=== PATIENT | male | born 1990 | race Native Hawaiian/Other Pacific Islander ===

== ENCOUNTER 2021-09-06 23:47 | Emergency (ER) | payer MEDICAID, SELFPAY ==
[2021-09-07 00:25] VITALS: BP 130/80; BP 133/85; PULSE 100; PULSE 90; RESP 18; TEMP 37.2; O2SAT 100; BMI 28.3
[2021-09-07 00:39] LABS: Hematocrit 40.8 % (42.0-52.0); Hemoglobin 13.4 g/dl (14.0-18.0); Mean Corpuscular HGB Conc 32.8 g/dl (31.0-36.0); Mean Corpuscular Volume 85.2 fL (80.0-98.0); Mean Platelet Volume 9.4 fL (9.4-12.4); Platelet Count 480 X10*3/uL (160-400); Red Blood Count 4.79 X10*6/uL (4.60-5.80); Red Cell Distribution Width 13.3 % (11.0-16.0); White Blood Count 18.3 X10*3/uL (4.8-10.8)
[2021-09-07 00:56] LABS: COVID-19 Test Negative (Negative)
[2021-09-07 01:01] LABS: Alanine Aminotransferase 19 U/L (0-40); Albumin Level 4.5 g/dL (3.5-5.0); Alkaline Phosphatase 89 U/L (39-117); Anion Gap 15 (12-20); Aspartate Amino Transferase 18 U/L (5-37); Bilirubin Total 0.3 mg/dL (0.0-1.0); Blood Urea Nitrogen 16 mg/dL (9-16); Carbon Dioxide 24 mmol/L (22-29); Chloride 103 mmol/L (96-108); Creatinine Clr Calc Pharmacy 122.4; Estimated Glomerular Filt Rate > 60; Glucose Random 107 mg/dL (60-115); Sodium 138 mmol/L (135-145); Total Protein 8.4 g/dL (6.5-8.0)
== END 2021-09-07 02:04 | disposition left against medical advice (07) ==
PROVIDERS: Emergency Provider Emergency Medicine
DX: R11.2 Nausea with vomiting, unspecified (principal); Z20.822 Contact with and (suspected) exposure to COVID-19
CPT/HCPCS: 36415; 80053; 85027; 87635; 99282; 99283

== ENCOUNTER 2021-11-06 | Emergency (ER) | payer MEDICAID, SELFPAY ==
[2021-11-06 00:28] VITALS: BP 140/95; PULSE 109; RESP 18; TEMP 36.9; O2SAT 98; BMI 29.3
--- NOTE | 2021-11-06 01:00 | ED.GENADULT ---
HPI - General Adult General Chief complaint: General Medical Stated complaint: Sore throat Time Seen by Provider: 11/06/21 00:10 Source: patient Mode of arrival: ambulatory Limitations: no limitations History of Present Illness HPI narrative: 30-year-old male presents with sore throat, congestion, and intermittent chills. Patient has had strep in the past and feels similar. Onset (ago): day(s) (3) Severity: moderate Severity scale (1-10): 6 Quality: burning and aching Pain Consistency: constant Relieving factors: none Exacerbating factors: eating Associated symptoms: denies other symptoms Treatments prior to arrival: NSAID Related Data Previous Rx's Medication Instructions Recorded amoxicillin 875 mg-potassium 1 tab PO Q12H 10 days #20 tabs 11/06/21 clavulanate 125 mg tablet Allergies Allergy/AdvReac Type Severity Reaction Status Date / Time acetaminophen [From TYLENOL] Allergy Unknown UNKNOWN Unverified 02/13/20 16:14 Review of Systems Review of Systems: Constitutional: No Fever, positive Chills ENT/Mouth: No Ear Pain, No Hoarseness, positive sore throat Eyes: No Eye Pain, No Swelling, No Redness, No Foreign Body Cardiovascular: No Chest Pain, No SOB Respiratory: No Cough, No Dyspnea Gastrointestinal: No Nausea, No Vomiting, No Diarrhea, No abdominal Pain Genitourinary: No Dysuria, No Hematuria Musculoskeletal: No joint pain, No Myalgias, No Joint Swelling Skin: No Skin lacerations, No rash Neuro: No Weakness, No Numbness, No Paresthesias, No Loss of Consciousness, No Dizziness, No Headache Psych: No Anxiety/Panic, No Depression Heme/Lymph: no easy bruising, no Lymphadenopathy Endocrine: No Polyuria, No Polydipsia Yes all other systems are reviewed and are negative [facility] Past Medical History Attestation statement: The following information was validated with the patient. Source: old records reviewed Social History Social History Advance Directives: No Physical Exam ED Vital Signs: Vital Signs - 24 hr 11/06/21 00:28 Temperature 98.4 F Pulse Rate 109 H Respiratory Rate 18 Blood Pressure 140/95 H Pulse Oximetry 98 Oxygen Delivery Method Room Air BMI result Body Mass Index 29.3 Appearance: Alert. Oriented X3. No acute distress. Eyes: Pupils equal, round and reactive to light. Sclera nonicteric. ENT: Pharynx erythematous with bilateral tonsillar swelling with exudates. Halitosis. Neck: Normal inspection. Neck supple. Posterior cervical lymphadenopathy. No mastoid tenderness noted. CVS: Normal heart rate and rhythm. Pulses normal. Respiratory: No respiratory distress. Breath sounds normal. Abdomen: Soft and nontender. No hepatosplenomegaly. Skin: Skin warm and dry. Normal skin color. Normal skin turgor. Extremities: No lower extremity edema. Gait well-balanced well coordinated. Neuro: No motor deficit. No sensory deficit. Cranial nerves 2-12 intact. Course Course Course Narrative: 30-year-old male presents with sore throat. Had strep positive few months ago. Physical exam is consistent with strep. Has bilateral tonsillar swelling with exudates, posterior cervical lymphadenopathy, no cough, with halitosis. Centor scale 4. Tympanic membranes intact. No hepatosplenomegaly or abdominal tenderness to palpation. Will treat with Augmentin. Patient verbalized understanding of and agrees to plan of care to discharge home. Verbalized understanding of signs and symptoms indicating need for emergent intervention Medical Decision Making Differential Diagnosis Differential Diagnosis: Strep pharyngitis, otitis media, influenza, viral syndrome Medical Records Medical records reviewed: Yes I reviewed the patient's medical records. Lab Data Lab results reviewed: Yes I reviewed the patient's lab results. Discharge Plan Discharge Clinical Impression: Acute streptococcal pharyngitis Patient Disposition: Home, Self-Care Instructions: Pharyngitis (ED), Strep Throat (ED) Additional Instructions: You were evaluated for sore throat. Physical exam indicates strep pharyngitis. Your test results are pending. Please take Augmentin 875 mg twice a day for 10 days. Please change your toothbrush once antibiotics are complete. Alternate Tylenol 650 mg every 6 hours and Motrin 600 mg every 6 hours as needed for pain management. Write down what time he take these medications to prevent accidental overdose. Thank you for choosing this emergency department for evaluation. Please follow-up with primary care physician as needed. Return to the emergency department for any new, concerning, or worsening symptoms. Prescriptions: New amoxicillin-pot clavulanate 875-125 mg tablet 1 tab PO Q12H 10 Days Qty: 20 0RF Stand Alone Forms: Work/School Release Interventions: LWBS Worksheet Last Done: 11/06/21 01:02
[2021-11-06] MEDS: Amoxicillin/Potassium Clav 875 MG TABLET PO (01:41)
[2021-11-06] MEDS: Lidocaine HCl Viscous 2 % 15 ML SOLUTION MUCOUS MEM (01:42)
[2021-11-06 02:08] LABS: Strep A Nucleic Acid Negative (Negative)
[2021-11-06 02:18] LABS: COVID-19 Test Negative (Negative); IDNOW Serial# 16C4AD1C; Influenza A Negative (Negative); Influenza B2 Negative (Negative)
== END 2021-11-06 01:45 | disposition home or self-care (01) ==
PROVIDERS: Emergency Medicine; Emergency Provider Emergency Medicine Emergency Medical Services
DX: J02.0 Streptococcal pharyngitis (principal); Z20.822 Contact with and (suspected) exposure to COVID-19
CPT/HCPCS: 36415; 87502; 87635; 87651; 99282; 99283

== ENCOUNTER 2022-08-22 03:38 | Emergency (ER) | payer MEDICAID, SELFPAY ==
[2022-08-22 03:49] VITALS: BP 151/76; PULSE 96; RESP 16; TEMP 36.7; O2SAT 98; BMI 26.6
--- NOTE | 2022-08-22 04:06 | PC.NURSE ---
Pt presents to the ED today for upper right jaw/tooth pain, ? abscess. Reports having puss draining from the affected area. Reports having increased fatigue, intermittent shortness of breath, headache, and occasional heart palpitations. To control pain, pt reports applying iburprofen to the affected area. Pain is rated 0/10 at present, but when pain is at it's worst is rated 10/10. No other associated symptoms or complaints reported. Last routine exam with dentist is unknown, per pt it has been years.
--- NOTE | 2022-08-22 04:13 | ED_ITS ---
HPI - Dental/Oral General Chief complaint: Dental/Oral Stated complaint: cyst in gums Time Seen by Provider: 08/22/22 04:03 History of Present Illness HPI Narrative: Patient is a 31-year-old male with a previous history of recreational drug use namely heroin. Patient claims he stopped in the last year. Is trying to change his life. Been complaining of pain to the teeth in his upper and lower jaw. It has been ongoing for over year. Getting worse. Patient came in tonight for help. There is no gross change in voice. There is no difficulty in swallowing. Patient from home. MD Complaint: tooth pain Location: Tooth # Teeth map: 1. Entire upper trough in various stages of dental decay there is no gross abscess palpable. 2. Lower jaw has infection on the right side more prominently. CK down to the root. No abscess palpable. Related Data Previous Rx's Medication Instructions Recorded amoxicillin 875 mg-potassium 1 tab PO Q12H 10 days #20 tabs 11/06/21 clavulanate 125 mg tablet ibuprofen 400 mg tablet 400 mg PO Q6H PRN pain #20 tabs 08/22/22 penicillin V potassium 500 mg 500 mg PO TID 7 days #21 tabs 08/22/22 tablet Allergies Allergy/AdvReac Type Severity Reaction Status Date / Time acetaminophen [From TYLENOL] Allergy Unknown UNKNOWN Unverified 08/22/22 03:55 Review of Systems Review of Systems: No fever no chills no diaphoresis Yes all other systems are reviewed and are negative [facility] Past Medical History Attestation statement: The following information was validated with the patient. Social History Social History Alcohol intake: unknown Physical Exam Vital Signs: Vital Signs: Last Vital Signs Temp 98.0 F 08/22/22 03:49 Pulse 96 08/22/22 03:49 Resp 16 08/22/22 03:49 BP 151/76 H 08/22/22 03:49 Pulse Ox 98 08/22/22 03:49 O2 Del Method Room Air 08/22/22 03:49 BMI result Body Mass Index 26.6 Appearance: Alert. Oriented X3. No acute distress. Eyes: Pupils equal, round and reactive to light. ENT: Pharynx normal. Examination of the upper jaw basically all the teeth are decayed. Most of them almost down to the gums. There is no gross abscess palpable. In the lower jaw on the right side there is numerous tooth that was decayed down to the the gum line as well. Neck: Normal inspection. Neck supple. No lymph nodes noted. No crepitus CVS: Normal heart rate and rhythm. Pulses normal. Normal S1 and S2 Respiratory: No respiratory distress. Breath sounds normal. No Wheezing. No rales Abdomen: Soft and nontender. No rigidity. No distention. good BS x4 Skin: Skin warm and dry. Normal skin color. Normal skin turgor. Extremities: No lower extremity edema. Neurovascular intact to all extremities. No Lacerations. No Rash Neuro: Oriented X 3. No motor deficit. No sensory deficit. Moving all extermities. No slurred speech Medical Decision Making Differential Diagnosis Patient has significant dental cavities, no gross abscess palpable. Will start patient on penicillin. Refer patient to [facility] for dental clinic. Patient is in stable condition. Will give Motrin for pain as patient had a previous history of narcotic use. In stable condition. Prescription Management I considered prescription management with: Pain Medication and Antibiotic Chronic Conditions Previous polysubstance abuse Social Determinants Patient?s care significantly limited by Social Determinants of Health including: Alcoholism and drug addiction in family Discharge Plan Discharge Clinical Impression: Dental caries Patient Disposition: Home, Self-Care Instructions: Toothache (ED) Prescriptions: New penicillin V potassium 500 mg tablet 500 mg PO TID 7 Days Qty: 21 0RF ibuprofen 400 mg tablet 400 mg PO Q6H PRN (Reason: pain) Qty: 20 0RF No Action amoxicillin-pot clavulanate 875-125 mg tablet 1 tab PO Q12H 10 Days Qty: 20 0RF Referrals: [facility] [Provider Group]
== END 2022-08-22 04:39 | disposition home or self-care (01) ==
PROVIDERS: Emergency Provider Emergency Medicine Emergency Medical Services
DX: K02.9 Dental caries, unspecified (principal)
CPT/HCPCS: 99283

== ENCOUNTER 2023-02-06 23:01 | Emergency (ER) | payer MEDICAID, SELFPAY | END 2023-02-06 23:55 | disposition left against medical advice (07) | PROVIDERS: Emergency Provider Emergency Medicine | DX: K08.89 Other specified disorders of teeth and supporting structures (principal) ==

== ENCOUNTER 2023-10-10 02:22 | Emergency (ER) | payer MEDICAID, SELFPAY ==
[2023-10-10 02:27] VITALS: BP 185/93; PULSE 70; RESP 18; TEMP 36.1; O2SAT 96; BMI 25.8
--- NOTE | 2023-10-10 04:22 | ED.DENTAL ---
HPI - Dental/Oral General Chief complaint: Ear Problems Stated complaint: cyst in nose, dizziness Time Seen by Provider: 10/10/23 04:04 Source: patient Mode of arrival: ambulatory Limitations: no limitations History of Present Illness HPI Narrative: 32 yo male no sig PMH notes earlier today had a lot of facial pressure thought he had a lesion in his nose went to get it with tweezers but couldn't. He does not have a nasal septum due to prior cocaine abuse. He then developed worsening pain in face, thought he had L sided swelling. Thought there was a lump near L ear but all of his symptoms are now gone. He has sinus congestion. He does have prior L sided jaw injury from boxing has pain opening jaw at times and clicking in jaw Onset (ago): day(s) (1) Duration: now resolved Severity: moderate Relieving factors: nothing Exacerbating factors: chewing and other (touching face) Context: trauma (mechanism) Associated symptoms: ear pain and other (sinus congestion) Treatment prior to arrival: none Related Data Previous Rx's ?Medication ?Instructions ?Recorded amoxicillin 875 mg-potassium 1 tab PO Q12H 10 days #20 tabs 11/06/21 clavulanate 125 mg tablet ibuprofen 400 mg tablet 400 mg PO Q6H PRN pain #20 tabs 08/22/22 penicillin V potassium 500 mg 500 mg PO TID 7 days #21 tabs 08/22/22 tablet amoxicillin 875 mg-potassium 1 tab PO BID #13 tabs 10/10/23 clavulanate 125 mg tablet cetirizine 10 mg tablet 10 mg PO DAILY PRN allergy 10/10/23 symptoms #30 tabs cyclobenzaprine 10 mg tablet 10 mg PO TID PRN muscle spasm #20 10/10/23 tabs Allergies Allergy/AdvReac Type Severity Reaction Status Date / Time acetaminophen [From TYLENOL] Allergy Unknown Hives Verified 10/10/23 02:29 Review of Systems Review of Systems: Constitutional : No Fever, No Chills, No Fatigue ENT/Mouth : No sore throat, No Rhinorrhea, pos ear pain, pos sinus congestion, pos jaw pain Eyes: No Eye Pain, No Swelling, No Redness Cardiovascular : No Chest Pain, No SOB, No Dyspnea on Exertion Respiratory : No Cough, No Sputum Gastrointestinal : No Nausea, No Vomiting, No Diarrhea, No abdominal Pain Genitourinary : No Dysuria, No Urinary Frequency, No Hematuria, Musculoskeletal : No joint pain, No Myalgias, No Joint Swelling Skin : No Skin Lesions, No rash Neuro : No Weakness, No Numbness, No Dizziness, positive Headache Psych : No Anxiety/Panic, No Depression All other systems reviewed and are negative [facility] Past Medical History Attestation statement: The following information was validated with the patient. Medical History (Updated 10/10/23 @ 04:30 by Kizzy Ibarra DO) No pertinent past medical history Social History Social History (Updated 10/10/23 @ 04:30 by Kizzy Ibarra DO) Alcohol intake: unknown Patient Tobacco Use Status: Tobacco use Unknown Physical Exam Vital Signs: Vital Signs: Last Vital Signs Temp 97.0 F 10/10/23 02:27 Pulse 70 10/10/23 02:27 Resp 18 10/10/23 02:27 BP 185/93 H 10/10/23 02:27 Pulse Ox 96 10/10/23 02:27 O2 Del Method Room Air 10/10/23 02:27 BMI result Body Mass Index 25.8 Appearance: Alert. Oriented X3. No acute distress. Eyes: Pupils equal, round and reactive to light. ENT: Pharynx normal. no facial swelling, septum is absent, no mass seen no blood, normal EOM, normal TMs, no lymphadenopathy, has TMJ pain on exam Neck: Normal inspection. Neck supple. CVS: Normal heart rate and rhythm. Pulses normal. Respiratory: No respiratory distress. Breath sounds normal. Abdomen: Soft and non-tender. Skin: Skin warm and dry. Normal skin color. Extremities: No lower extremity edema. No calf ttp Neuro: Oriented X 3. No motor deficit. No sensory deficit. Medical Decision Making Medical Decision Making [facility] Narrative: 32 yo male with vague symptoms of facial pain, sinus congestion reportedly tried to remove a cyst from the nose though I see nothing on exam - he has normal ENT exam no meningeal signs, headache resolved neuro intact at this time well appearing will start on medications for suspect TMJ syndrome along with allergy medications and sinusitis treatment. Precautions to return. Differential Diagnosis Differential Diagnoses: The differential diagnosis associated with the presentation includes TMJ syndrome, sinusitis Independent Historian Clinical information obtained from an independent historian. History obtained from or confirmed by: Parent Prescription Management I considered prescription management with: Antibiotic and Other Discharge Plan Discharge Clinical Impression: Left-sided temporomandibular joint pain-dysfunction syndrome Sinusitis Qualifiers: Sinusitis location: unspecified location Chronicity: acute Recurrence: non-recurrent Qualified Code(s): J01.90 - Acute sinusitis, unspecified Patient Disposition: Home, Self-Care Instructions: Sinusitis (ED), Temporomandibular Disorder (ED) Additional Instructions: talk to your dentist or doctor if jaw worsens about further management and care return for worsening pain, fevers, confusion, headache or any other concerns. On amoxicillin-clavulanate, softer bowel movements are to be expected. Call your provider if you move your bowels more than 4 times a day, your bowel movements are almost all liquid, or you get a rash.? Prescriptions: New cyclobenzaprine 10 mg tablet 10 mg PO TID PRN (Reason: muscle spasm) Qty: 20 0RF amoxicillin-pot clavulanate 875-125 mg tablet 1 tab PO BID Qty: 13 0RF cetirizine 10 mg tablet 10 mg PO DAILY PRN (Reason: allergy symptoms) Qty: 30 1RF No Action amoxicillin-pot clavulanate 875-125 mg tablet 1 tab PO Q12H 10 Days Qty: 20 0RF penicillin V potassium 500 mg tablet 500 mg PO TID 7 Days Qty: 21 0RF ibuprofen 400 mg tablet 400 mg PO Q6H PRN (Reason: pain) Qty: 20 0RF Print Language: Bhutanese
[2023-10-10] MEDS: Amoxicillin/Potassium Clav 875 MG TABLET PO (04:35)
[2023-10-10] MEDS: Cyclobenzaprine HCl 10 MG TABLET PO (04:35)
[2023-10-10 04:51] VITALS: BP 117/66; PULSE 59; RESP 17; TEMP 36.5; O2SAT 98
[2023-10-10 04:52] VITALS: BP 117/66; PULSE 59; RESP 17; TEMP 36.5; O2SAT 98
== END 2023-10-10 04:53 | disposition home or self-care (01) ==
PROVIDERS: Emergency Provider Emergency Medicine
DX: J01.90 Acute sinusitis, unspecified (principal)
CPT/HCPCS: 99283; 99284

== ENCOUNTER 2023-12-11 22:23 | Emergency (ER) | payer MEDICAID, SELFPAY ==
[2023-12-11 22:43] VITALS: BP 99/43; PULSE 60; RESP 19; TEMP 36.8; O2SAT 97; BMI 27.0
[2023-12-11 23:41] LABS: Influenza A PCR NEGATIVE (Negative); Influenza B PCR NEGATIVE (Negative); Resp Syncy Virus RNA Qual PCR NEGATIVE (Negative); SARS COV2 PCR INHOUSE NEGATIVE (Negative)
[2023-12-12] VITALS: BP 99/58; PULSE 52; RESP 16; TEMP 37.1; O2SAT 98
--- NOTE | 2023-12-12 00:39 | ED_ITS ---
HPI - URI/Sore Throat General Chief Complaint: Upper Respiratory Symptoms Stated Complaint: congestion, difficulty breathing Time Seen by Provider: 12/12/23 00:28 Source: patient Mode of arrival: ambulatory Limitations: no limitations History of Present Illness HPI Narrative: Patient is a 33-year-old male who presents to the emergency department for evaluation of postnasal drip, productive phlegm. Onset a few months ago, states he received a prescription for antibiotics and took an allergy pill for approximately 1 month. His symptoms did improve but they have since returned again. He admits to intranasal cocaine and heroin usage, he however did declines any interest in detox or assistance. He denies any fevers, chills, ear pain, sore chest pain or shortness of breath Denies fevers, chills, headache, dizziness, neck pain, neck stiffness, chest pain, shortness of breath, difficulty breathing, cough, sore throat, nausea, vomiting, abdominal pain, numbness or tingling of the extremities, genitourinary symptoms. Related Data Previous Rx's ?Medication ?Instructions ?Recorded amoxicillin 875 mg-potassium 1 tab PO Q12H 10 days #20 tabs 11/06/21 clavulanate 125 mg tablet ibuprofen 400 mg tablet 400 mg PO Q6H PRN pain #20 tabs 08/22/22 penicillin V potassium 500 mg 500 mg PO TID 7 days #21 tabs 08/22/22 tablet amoxicillin 875 mg-potassium 1 tab PO BID #13 tabs 10/10/23 clavulanate 125 mg tablet cetirizine 10 mg tablet 10 mg PO DAILY PRN allergy 10/10/23 symptoms #30 tabs cyclobenzaprine 10 mg tablet 10 mg PO TID PRN muscle spasm #20 10/10/23 tabs amoxicillin 875 mg-potassium 1 tab PO BID #13 tabs 12/12/23 clavulanate 125 mg tablet cetirizine 10 mg tablet 10 mg PO DAILY #30 tabs 12/12/23 Allergies Allergy/AdvReac Type Severity Reaction Status Date / Time acetaminophen [From TYLENOL] Allergy Unknown Hives Verified 12/11/23 22:48 Review of Systems Review of Systems: Yes all other systems are reviewed and are negative [facility] Past Medical History Attestation statement: The following information was validated with the patient. Source: old records reviewed Medical History (Updated 12/12/23 @ 00:44 by Catherine Lizama CNP) No pertinent past medical history Social History Social History (Updated 10/10/23 @ 04:30 by Kizzy Ibarra DO) Alcohol intake: unknown Patient Tobacco Use Status: Tobacco use Unknown Smoked in Last 30 Days: No Use of substances other than those prescribed or required for medical reasons: No Advance Directives: No Advance Directives Information Provided: Yes Do you have a plan to hurt others: No Plan Physical Exam Vital Signs: Vital Signs: Last Vital Signs Temp 98.7 F 12/12/23 01:02 Pulse 52 12/12/23 01:02 Resp 16 12/12/23 01:02 BP 99/58 L 12/12/23 01:02 Pulse Ox 98 12/12/23 01:02 O2 Del Method Room Air 12/12/23 01:02 BMI result Body Mass Index 27.0 Appearance: Alert.?Oriented to person, place and time. No acute distress.?Normal affect. Eyes: Pupils equal, round and reactive to light.? ENT: TM normal bilaterally. Pharynx normal.??Septum is absent. No visible masses or epistaxis. Neck: Normal inspection.? Neck supple.??No cervical adenopathy CVS: Heart sounds normal. Normal heart rate and rhythm.? Pulses normal.?? Respiratory: No respiratory distress.? Lung sounds clear to auscultation bilaterally?? Abdomen: Soft and non-tender. Normoactive bowel sounds. Skin: Skin warm and dry.? Normal skin color.? ? Extremities: No lower extremity edema.? Neuro: Moves all extremities spontaneously. Sensation intact bilaterally. No motor deficits. Ambulates with normal steady gait. Medications Administered Discontinued Medications Generic Name Dose Route Start Last Admin Trade Name Freq PRN Reason Stop Dose Admin Amoxicillin/Clavulanate Potassium 875 mg 12/12/23 00:44 12/12/23 00:59 Amoxicillin/Potassium Clav 875 Mg Tablet PO 12/12/23 00:45 875 mg ONCE ONE Administration Medical Decision Making Medical Decision Making [facility] Narrative: Patient is a 33-year-old male presents emergency department for evaluation of productive phlegm, expressed concern for sinus congestion. Examination is overall benign, aside from absence of nasal septum. No nuchal rigidity, Well- appearing, nontoxic, afebrile, no tachycardia or tachypnea/hypoxia. Speaking clear full sentences, ambulatory with steady gait. Discussed conservative treatment including rest, hydration, Tylenol/ibuprofen as needed for fever and body aches, saline nasal spray, humidifier. Sent prescription for Augmentin and cetirizine to pharmacy, advised to refrain from intranasal recreational drug usage as this is likely worsening his sinusitis. Advised to follow-up with primary care provider as needed, discussed reasons to return back to the emergency department. All questions were answered. Patient discharged home in stable condition. Differential Diagnosis Differential Diagnoses: The differential diagnosis associated with the presentation includes ( See narrative above) Admission/Observation Consideration of admission/observation: Escalation of care including admission/observation considered ( see narrative above) Lab Data MDM Lab Attestation statement: I reviewed the patient's lab results. ( see narrative above) Labs: Lab Results 12/11/23 Range/Units 23:00 Influenza Type A (PCR) NEGATIVE (Negative) Influenza Type B (PCR) NEGATIVE (Negative) RSV RNA Qual (PCR) NEGATIVE (Negative) SARS-CoV-2 RNA (RT-PCR) NEGATIVE (Negative) External Record Review External record reviewed: Outpatient record Prescription Management I considered prescription management with: Pain Medication ( acetaminophen/ibuprofen) and Antibiotic Discharge Plan Discharge Clinical Impression: Sinusitis Patient Disposition: Home, Self-Care Instructions: Sinusitis (ED) Prescriptions: New amoxicillin-pot clavulanate 875-125 mg tablet 1 tab PO BID Qty: 13 0RF cetirizine 10 mg tablet 10 mg PO DAILY Qty: 30 0RF No Action amoxicillin-pot clavulanate 875-125 mg tablet 1 tab PO Q12H 10 Days Qty: 20 0RF penicillin V potassium 500 mg tablet 500 mg PO TID 7 Days Qty: 21 0RF ibuprofen 400 mg tablet 400 mg PO Q6H PRN (Reason: pain) Qty: 20 0RF cyclobenzaprine 10 mg tablet 10 mg PO TID PRN (Reason: muscle spasm) Qty: 20 0RF amoxicillin-pot clavulanate 875-125 mg tablet 1 tab PO BID Qty: 13 0RF cetirizine 10 mg tablet 10 mg PO DAILY PRN (Reason: allergy symptoms) Qty: 30 1RF Referrals: [facility] [Primary Care Provider] - Interventions: ED Discharge Assessment Last Done: 12/12/23 01:02 Discharge Date/Time: 12/12/23 01:03 Print Language: Greek
[2023-12-12] MEDS: Amoxicillin/Potassium Clav 875 MG TABLET PO (00:59)
[2023-12-12 01:02] VITALS: BP 99/58; PULSE 52; RESP 16; TEMP 37.1; O2SAT 98
== END 2023-12-12 01:03 | disposition home or self-care (01) ==
PROVIDERS: Emergency Provider Emergency Medicine
DX: J32.9 Chronic sinusitis, unspecified (principal); J02.9 Acute pharyngitis, unspecified; R06.02 Shortness of breath; Z03.818 Encounter for observation for suspected exposure to other biological agents ruled out
CPT/HCPCS: 0241U; 99283; 99284

== ENCOUNTER 2024-02-16 08:28 | Emergency (ER) | payer MEDICAID, SELFPAY ==
--- NOTE | ~2024-02-16 | XR_ITS ---
EXAMINATION: XR CHEST CLINICAL INFORMATION: Cough, dyspnea COMPARISON: Chest radiograph 10/10/2007 TECHNIQUE: 2 views of the chest were obtained. FINDINGS: The lungs are adequately expanded. Subtle opacity in the right upper lobe projecting over the anterior first rib ,not definitely visualized on prior exam. The left lung is clear. No pleural effusions or pneumothorax. The cardiomediastinal silhouette is within normal limits. No acute osseous abnormality. XR/XR chest 2V IMPRESSION: Subtle opacity in the right upper lobe not definitely visualized on prior exam. An infiltrate is not excluded. Electronically signed by: Jordin Rodriguez MD 02/16/2024 10:34 AM EDT
[2024-02-16 08:57] VITALS: BP 124/94; PULSE 57; RESP 18; TEMP 36.9; O2SAT 97; BMI 29.2
--- NOTE | 2024-02-16 09:34 | ED_ITS ---
HPI - General Adult General Chief complaint: Upper Respiratory Symptoms Stated complaint: Headache/Diff breathing Time Seen by Provider: 02/16/24 09:33 Source: patient Mode of arrival: ambulatory Limitations: no limitations History of Present Illness ED Provider: Latisha House PA-C HPI narrative: Patient is a 33 year old assigned male at with no reported medical history presenting to the emergency department today with a cough. Patient states that he has been dealing with excessive mucous and a cough for weeks and it has not improved despite taking OTC medication. Patient denies any dizziness, lightheadedness, abdominal pain, nausea, vomiting, fever, chills, blurry vision, double vision, loss of vision, chest pain, difficulty breathing, shortness of breath, back pain, night sweats, pain with urination, increased urinary frequency, increased urinary urgency, blood in his urine or stool, syncope or a near syncopal episode, recent trauma or falls, bowel incontinence, bladder incontinence, or any other complaints at this time. Onset (ago): week(s) Relieving factors: none Exacerbating factors: none Associated symptoms: cough Related Data Previous Rx's ?Medication ?Instructions ?Recorded amoxicillin 875 mg-potassium 1 tab PO Q12H 10 days #20 tabs 11/06/21 clavulanate 125 mg tablet ibuprofen 400 mg tablet 400 mg PO Q6H PRN pain #20 tabs 08/22/22 penicillin V potassium 500 mg 500 mg PO TID 7 days #21 tabs 08/22/22 tablet amoxicillin 875 mg-potassium 1 tab PO BID #13 tabs 10/10/23 clavulanate 125 mg tablet cetirizine 10 mg tablet 10 mg PO DAILY PRN allergy 10/10/23 symptoms #30 tabs cyclobenzaprine 10 mg tablet 10 mg PO TID PRN muscle spasm #20 10/10/23 tabs amoxicillin 875 mg-potassium 1 tab PO BID #13 tabs 12/12/23 clavulanate 125 mg tablet cetirizine 10 mg tablet 10 mg PO DAILY #30 tabs 12/12/23 amoxicillin 875 mg tablet 875 mg PO BID 7 days #14 tabs 02/16/24 doxycycline hyclate 100 mg tablet 100 mg PO BID 7 days #14 tabs 02/16/24 Allergies Allergy/AdvReac Type Severity Reaction Status Date / Time acetaminophen [From TYLENOL] Allergy Unknown Hives Verified 02/16/24 08:59 Review of Systems Constitutional: Constitutional: Reports no additional constitutional complaints, Denies chills, Denies fever(s) and Denies night sweats Eyes: Eyes: Reports no additional eye complaints, Denies blurry vision, Denies change in vision, Denies diplopia, Denies eye discharge, Denies loss of vision and Denies eye pain ENT: Denies dizziness Cardiovascular: Cardiovascular: Reports no additional cardiovascular complaints, Denies chest pain, Denies lightheadedness, Denies Loss of Consciousness and Denies dyspnea Respiratory: Respiratory: Reports no additional respiratory complaints, Reports cough and Denies dyspnea Gastrointestinal: Gastrointestinal: Reports no additional gastrointestinal c omplaints, Denies abdominal pain, Denies melena, Denies hematochezia, Denies change in bowel habits and Denies change in stool character Genitourinary: Genitourinary: Reports no additional male genitourinary complaints, Denies hematuria, Denies oliguria, Denies difficulty urinating, Denies dysuria, Denies urinary frequency, Denies urinary hesitancy, Denies urinary incontinence and Denies urinary urgency Musculoskeletal: Musculoskeletal: Reports no additional musculoskeletal complaints, Denies numbness and Denies tingling Neurologic: Denies dizziness, Denies loss of vision, Denies numbness and Denies tingling Psychiatric: Psychiatric: Reports no additional psychiatric complaints Endocrine: Endocrine: Reports no additional endocrine complaints Hematologic/Lymphatic: Hematologic/Lymphatic: Reports no additional hematologic/lymphatic complaints Allergic/Immunologic: Allergic/Immunologic: Reports no additional allergic/immunologic complaints [facility] Past Medical History Attestation statement: The following information was validated with the patient. Source: old records reviewed and nursing notes reviewed Medical History No pertinent past medical history Social History Social History Alcohol intake: unknown Patient Tobacco Use Status: Tobacco use Unknown Advance Directives: No Advance Directives Information Provided: Yes Physical Exam ED Vital Signs: Vital Signs - 24 hr 02/16/24 08:57 02/16/24 10:00 Temperature 98.5 F 98.3 F Pulse Rate 57 62 Respiratory Rate 18 19 Blood Pressure 124/94 H 155/93 H Pulse Oximetry 97 98 Oxygen Delivery Method Room Air Room Air BMI result Body Mass Index 29.2 Const General: cooperative, no acute distress, alert and awake Nutritional Appearance: well nourished Orientation/consciousness: patient oriented x3 Limitations: no limitations HENMT Head: Yes normal to inspection and Yes atraumatic Ears: hearing grossly normal bilaterally and external ears normal General nose exam: Normal external nose present, no nasal discharge noted and no epistaxis Face and sinus: Yes normal facial exam, No abrasion and No laceration Mouth: Normal oral and palatal mucosa present, no drooling and no muffled voice Eyes General: appearance normal, both eyes and all related structures Periorbital: periorbital findings normal Eyelids: Yes eyelids normal Conjunctivae: conjunctivae normal Pupils: Equal, round and reactive pupils present EOM: EOMs intact bilaterally Neck Neck: Yes normal visual inspection, Yes full ROM and Yes no lymphadenopathy Chest Chest palpation & inspection: normal inspection of the chest Resp Effort & Inspection: normal respiratory effort and able to speak in complete sentences GI Inspection: Yes normal to inspection Neuro General: patient oriented x3 and moves all extremities Cranial nerves: Yes Equal, round and reactive pupils present Cognition (Neuro): normal cognition Extrem General: Yes normal to inspection, Yes full ROM and Yes capillary refill normal Psych Appearance: grossly normal Mental Status: mental status grossly normal Affect: normal affect Attitude: cooperative Thought process: Normal thought process present Thought content: Normal thought content present Insight: Good insight present (Psych) Medical Decision Making Medical Decision Making MDM Narrative: Patient is a 33 year old assigned male at with no reported medical history presenting to the emergency department today with a cough. Patient's physical exam was unremarkable. Patient's chest x-ray showed possible PNA. Given the patient's clinical presentation and duration of symptoms, will treat. I explained my physical exam findings as well as all test results to the patient. I answered all questions asked by the patient. I stressed the importance of the patient taking his medication as directed (either prescribed or as the over the counter packaging recommends). I stressed the importance of the patient fo llowing up with his primary care provider. I stressed the importance of the patient returning to the emergency department immediately if his symptoms were to worsen or if he were to develop any dizziness, shortness of breath, difficulty breathing, chest pain, blurry vision, loss of vision, nausea, vomiting, abdominal pain, fever, chills, back pain, or any other complaints. Patient verbalized agreement and understanding with this treatment plan and discharge. Differential Diagnosis Differential Diagnoses: The differential diagnosis associated with the presentation includes PNA Cough Viral illness Admission/Observation Consideration of admission/observation: Escalation of care including admission/observation considered Patient would have been admitted to the hospital had his work up had any findings where hospital admission was appropriate and his clinical presentation warranted hospital admission. Lab Data [facility] Lab Attestation statement: I reviewed the patient's lab results. My interpretation of these results are in the [facility] Rationale portion of this note. Labs: Lab Results 02/16/24 Range/Units 09:02 Influenza Type A (PCR) NEGATIVE (Negative) Influenza Type B (PCR) NEGATIVE (Negative) RSV RNA Qual (PCR) NEGATIVE (Negative) SARS-CoV-2 RNA (RT-PCR) NEGATIVE (Negative) Independent Interpretation I performed an independent interpretation of an: Plain X-Ray Interpretation: My interpretation is in agreement with the radiologist's impression of this imaging study. EXAMINATION: XR CHEST CLINICAL INFORMATION: Cough, dyspnea COMPARISON: Chest radiograph 10/10/2007 TECHNIQUE: 2 views of the chest were obtained. FINDINGS: The lungs are adequately expanded. Subtle opacity in the right upper lobe projecting over the anterior first rib ,not definitely visualized on prior exam. The left lung is clear. No pleural effusions or pneumothorax. The cardiomediastinal silhouette is within normal limits. No acute osseous abnormality. XR/XR chest 2V IMPRESSION: Subtle opacity in the right upper lobe not definitely visualized on prior exam. An infiltrate is not excluded. Electronically signed by: Jordin Rodriguez MD 02/16/2024 10:34 AM EDT Dictated By: Jordin Rodriguez Signed By: Electronically signed by Jordin Rodriguez 02/16/24 1034 Radiology Impression Discussion of test interpretation with radiology: I have reviewed the radiologist's reading. Prescription Management I considered prescription management with: Antibiotic (patient prescribed a antibiotics for possible PNA) Discharge Plan Discharge Clinical Impression: Pneumonia Patient Disposition: Home, Self-Care Instructions: Community Acquired Pneumonia (DC) Additional Instructions: Follow up with your primary care provider. Return to the emergency department immediately if your symptoms worsen or if you develop any dizziness, shortness of breath, difficulty breathing, chest pain, blurry vision, loss of vision, nausea, vomiting, abdominal pain, fever, chills, back pain, or any other complaints. Prescriptions: New amoxicillin 875 mg tablet 875 mg PO BID 7 Days Qty: 14 0RF doxycycline hyclate 100 mg tablet 100 mg PO BID 7 Days Qty: 14 0RF No Action amoxicillin-pot clavulanate 875-125 mg tablet 1 tab PO Q12H 10 Days Qty: 20 0RF penicillin V potassium 500 mg tablet 500 mg PO TID 7 Days Qty: 21 0RF ibuprofen 400 mg tablet 400 mg PO Q6H PRN (Reason: pain) Qty: 20 0RF cyclobenzaprine 10 mg tablet 10 mg PO TID PRN (Reason: muscle spasm) Qty: 20 0RF amoxicillin-pot clavulanate 875-125 mg tablet 1 tab PO BID Qty: 13 0RF cetirizine 10 mg tablet 10 mg PO DAILY PRN (Reason: allergy symptoms) Qty: 30 1RF amoxicillin-pot clavulanate 875-125 mg tablet 1 tab PO BID Qty: 13 0RF cetirizine 10 mg tablet 10 mg PO DAILY Qty: 30 0RF Referrals: [facility] [place] Family Medicine [Provider Group] (Call to establish and follow up with a primary care provider. If you already have a primary care provider, please follow up with them.) [facility] [Provider Group] (Call to establish and follow up with a primary care provider. If you already have a primary care provider, please follow up with them.) [facility] [place] [facility] [Provider Group] (Call to establish and follow up with a primary care provider. If you already have a primary care provider, please follow up with them.) Stand Alone Forms: Work/School Release Print Language: Albanian
[2024-02-16 09:42] LABS: Influenza A PCR NEGATIVE (Negative); Influenza B PCR NEGATIVE (Negative); Resp Syncy Virus RNA Qual PCR NEGATIVE (Negative); SARS COV2 PCR INHOUSE NEGATIVE (Negative)
[2024-02-16 10:00] VITALS: BP 155/93; PULSE 62; RESP 19; TEMP 36.8; O2SAT 98
[2024-02-16 11:32] VITALS: BP 155/93; PULSE 62; RESP 19; TEMP 36.8; O2SAT 98
== END 2024-02-16 11:32 | disposition home or self-care (01) ==
PROVIDERS: Emergency Provider Emergency Medicine
DX: J18.9 Pneumonia, unspecified organism (principal); R51.9 Headache, unspecified; R06.02 Shortness of breath; R05.9 Cough, unspecified; Z03.818 Encounter for observation for suspected exposure to other biological agents ruled out
CPT/HCPCS: 0241U; 71046; 99283

== ENCOUNTER 2024-09-28 20:21 | Emergency (ER) | payer MEDICAID, SELFPAY ==
[2024-09-28 20:26] VITALS: BP 187/101; PULSE 114; RESP 18; TEMP 36.9; O2SAT 97
--- NOTE | 2024-09-28 20:26 | ED.GENADULT ---
HPI - General Adult General Chief complaint: Chest Pain Stated complaint: diffuse swelling and chest pain Related Data Previous Rx's ?Medication ?Instructions ?Recorded amoxicillin 875 mg-potassium 1 tab PO Q12H 10 days #20 tabs 11/06/21 clavulanate 125 mg tablet ibuprofen 400 mg tablet 400 mg PO Q6H PRN pain #20 tabs 08/22/22 penicillin V potassium 500 mg 500 mg PO TID 7 days #21 tabs 08/22/22 tablet amoxicillin 875 mg-potassium 1 tab PO BID #13 tabs 10/10/23 clavulanate 125 mg tablet cetirizine 10 mg tablet 10 mg PO DAILY PRN allergy 10/10/23 symptoms #30 tabs cyclobenzaprine 10 mg tablet 10 mg PO TID PRN muscle spasm #20 10/10/23 tabs amoxicillin 875 mg-potassium 1 tab PO BID #13 tabs 12/12/23 clavulanate 125 mg tablet cetirizine 10 mg tablet 10 mg PO DAILY #30 tabs 12/12/23 amoxicillin 875 mg tablet 875 mg PO BID 7 days #14 tabs 02/16/24 doxycycline hyclate 100 mg tablet 100 mg PO BID 7 days #14 tabs 02/16/24 Allergies Allergy/AdvReac Type Severity Reaction Status Date / Time acetaminophen [From TYLENOL] Allergy Unknown Hives Verified 09/28/24 20:28 [facility] Past Medical History Medical History No pertinent past medical history Social History Social History Alcohol intake: unknown Patient Tobacco Use Status: Tobacco use Unknown Advance Directives: No Advance Directives Information Provided: No Do you have a plan to hurt others: No Plan Physical Exam ED Vital Signs: BMI result Body Mass Index 30.0 Course Course Course Narrative: This is an RME performed by Nkechi Lizama CNP: Additional HPI, ROS, PE not included below will be deferred to primary provider. A 33-year-old male who presents emergency department for evaluation. He reports while at work today he was feeling various areas on his body that were itchy, by the time he got home found multiple bumps all over his body that he continued scratching, are now feeling that they are painful, swollen, noted to be scabbed over. Complaining of intermittent left anterior chest pain, shortness of breath, occurring over the past 3 days. Endorsing numbness to the bilateral lower extremities. 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 Plan: Serum labs, viral serologies, EKG Reevaluation(s) Reevaluation #1: Left without completing treatment Medical Decision Making Lab Data 09/28/24 20:39 09/28/24 20:39 Labs: Lab Results 09/28/24 Range/Units 20:39 WBC 12.8 H (4.8-10.8) X10*3/uL RBC 5.15 (4.60-5.80) X10*6/uL Hgb 14.6 (14.0-18.0) g/dl Hct 42.0 (42.0-52.0) % MCV 81.6 (80.0-98.0) fL MCH 28.3 (27.0-33.0) pg MCHC 34.8 (31.0-36.0) g/dl RDW 12.4 (11.0-16.0) % Plt Count 293 D (160-400) X10*3/uL MPV 9.8 (9.4-12.4) fL Immature Gran % (Auto) 0.5 H (0.0-0.4) % Neut % (Auto) 67.9 (45-73) % Lymph % (Auto) 24.7 (20-40) % Bullitt % (Auto) 5.5 (2-11) % Eos % (Auto) 1.1 (0-4) % Baso % (Auto) 0.3 (0-2) % Lymph # (Auto) 3.2 (1.2-4.9) X10*3/uL Bullitt # (Auto) 0.7 (0.1-1.2) X10*3/uL Eos # (Auto) 0.1 (0.0-0.4) X10*3/uL Baso # (Auto) 0.0 (0.0-0.2) X10*3/uL Abs Immat Gran (auto) 0.06 H (0.00-0.03) X10*3/uL Absolute Neuts (auto) 8.7 H (2.0-8.3) x10*3/uL Absolute Nucleated RBC 0.000 (0.0-0.012) X10*3/uL Nucleated RBC % (auto) 0.0 (0.0-0.2) /100WBC Sodium 143 (135-145) mmol/L Potassium 3.4 (3.3-5.1) mmol/L Chloride 107 (96-108) mmol/L Carbon Dioxide 23 (22-29) mmol/L Anion Gap 16 (12-20) BUN 11 (9-16) mg/dL Creatinine 0.75 (0.5-1.4) mg/dL Estim Creat Clear Calc 135.2 Estimated GFR > 60 Random Glucose 111 (60-115) mg/dL Calcium 9.8 (8.4-10.2) mg/dL Magnesium 2.1 (1.6-2.6) mg/dL Total Bilirubin 0.6 (0.0-1.0) mg/dL AST 36 (5-37) U/L ALT 29 (0-40) U/L Alkaline Phosphatase 121 H (39-117) U/L Troponin I High Sens 7.6 (<3.5-35.0) ng/L Total Protein 8.6 H (6.5-8.0) g/dL Albumin 4.9 (3.5-5.0) g/dL Influenza Type A (PCR) NEGATIVE (Negative) Influenza Type B (PCR) NEGATIVE (Negative) RSV RNA Qual (PCR) NEGATIVE (Negative) SARS-CoV-2 RNA (RT-PCR) NEGATIVE (Negative) Discharge Plan Discharge Clinical Impression: Diagnosis unknown Patient Disposition: Left Against Medical Advice Prescriptions: No Action amoxicillin-pot clavulanate 875-125 mg tablet 1 tab PO Q12H 10 Days Qty: 20 0RF penicillin V potassium 500 mg tablet 500 mg PO TID 7 Days Qty: 21 0RF ibuprofen 400 mg tablet 400 mg PO Q6H PRN (Reason: pain) Qty: 20 0RF cyclobenzaprine 10 mg tablet 10 mg PO TID PRN (Reason: muscle spasm) Qty: 20 0RF amoxicillin-pot clavulanate 875-125 mg tablet 1 tab PO BID Qty: 13 0RF cetirizine 10 mg tablet 10 mg PO DAILY PRN (Reason: allergy symptoms) Qty: 30 1RF amoxicillin-pot clavulanate 875-125 mg tablet 1 tab PO BID Qty: 13 0RF cetirizine 10 mg tablet 10 mg PO DAILY Qty: 30 0RF amoxicillin 875 mg tablet 875 mg PO BID 7 Days Qty: 14 0RF doxycycline hyclate 100 mg tablet 100 mg PO BID 7 Days Qty: 14 0RF Stand Alone Forms: Against Medical Advice Discharge Date/Time: 09/28/24 21:43 Print Language: Guamanian
--- NOTE | 2024-09-28 20:30 | ECG_ITS ---
Test Reason : CHEST PAIN Blood Pressure : */* mmHG Vent. Rate : 102 BPM Atrial Rate : 102 BPM P-R Int : 150 ms QRS Dur : 80 ms QT Int : 368 ms P-R-T Axes : 56 29 43 degrees QTcB Int : 479 ms Sinus tachycardia Otherwise normal ECG No previous ECGs available Referred By: Catherine Lizama Electronically Signed By: RAOUL LANGLEY
[2024-09-28 20:45] LABS: MANUAL DIFF FLAG NO
[2024-09-28 20:48] LABS: Basophils Percent Auto 0.3 % (0-2); Eosinophils Absolute Auto 0.1 X10*3/uL (0.0-0.4); Eosinophils Percent Auto 1.1 % (0-4); Hemoglobin 14.6 g/dl (14.0-18.0); Imm Gran Abs Auto 0.06 X10*3/uL (0.00-0.03); Imm Gran Pct Auto 0.5 % (0.0-0.4); Lymphocytes Absolute Auto 3.2 X10*3/uL (1.2-4.9); Lymphocytes Percent Auto 24.7 % (20-40); Mean Corpuscular HGB Conc 34.8 g/dl (31.0-36.0); Mean Corpuscular Hemoglobin 28.3 pg (27.0-33.0); Mean Corpuscular Volume 81.6 fL (80.0-98.0); Mean Platelet Volume 9.8 fL (9.4-12.4); Monocytes Absolute Auto 0.7 X10*3/uL (0.1-1.2); Monocytes Percent Auto 5.5 % (2-11); Neutrophils Absolute Auto 8.7 x10*3/uL (2.0-8.3); Neutrophils Percent Auto 67.9 % (45-73); Platelet Count 293 X10*3/uL (160-400); Red Blood Count 5.15 X10*6/uL (4.60-5.80); Red Cell Distribution Width 12.4 % (11.0-16.0); White Blood Count 12.8 X10*3/uL (4.8-10.8)
[2024-09-28 21:01] LABS: Alanine Aminotransferase 29 U/L (0-40); Albumin Level 4.9 g/dL (3.5-5.0); Alkaline Phosphatase 121 U/L (39-117); Anion Gap 16 (12-20); Aspartate Amino Transferase 36 U/L (5-37); Bilirubin Total 0.6 mg/dL (0.0-1.0); Blood Urea Nitrogen 11 mg/dL (9-16); Calcium 9.8 mg/dL (8.4-10.2); Carbon Dioxide 23 mmol/L (22-29); Chloride 107 mmol/L (96-108); Creatinine Clr Calc Pharmacy 135.2; Estimated Glomerular Filt Rate > 60; Glucose Random 111 mg/dL (60-115); Magnesium 2.1 mg/dL (1.6-2.6); Potassium 3.4 mmol/L (3.3-5.1); Sodium 143 mmol/L (135-145); Total Protein 8.6 g/dL (6.5-8.0)
[2024-09-28 21:08] LABS: Troponin-I High Sensitivity 7.6 ng/L (<3.5-35.0)
[2024-09-28 21:25] LABS: Influenza A PCR NEGATIVE (Negative); Influenza B PCR NEGATIVE (Negative); Resp Syncy Virus RNA Qual PCR NEGATIVE (Negative); SARS COV2 PCR INHOUSE NEGATIVE (Negative)
--- NOTE | 2024-09-28 21:38 | PC.NURSE ---
pt refuses repeat troponin- sts must leave due to emergency with child. sts pain has resloved and will return later
--- NOTE | 2024-09-28 21:42 | PC.NURSE ---
AMA form sign by pt- refusing all further diagnostics
== END 2024-09-28 21:43 | disposition left against medical advice (07) ==
PROVIDERS: Nurse Practitioner Family; Emergency Provider Emergency Medicine
DX: R07.9 Chest pain, unspecified (principal); R06.02 Shortness of breath; L29.9 Pruritus, unspecified; Z03.818 Encounter for observation for suspected exposure to other biological agents ruled out; Z79.899 Other long term (current) drug therapy
CPT/HCPCS: 0241U; 80053; 83735; 84484; 85025; 93005; 99283

== ENCOUNTER → 2024-09-28 20:30 | Outpatient (BNV) | payer MEDICAID, SELFPAY | PROVIDERS: Emergency Provider Emergency Medicine; Visit Provider Internal Medicine | DX: R00.0 Tachycardia, unspecified (principal) | CPT/HCPCS: 93010 ==

== ENCOUNTER 2025-03-17 22:03 | Emergency (ER) | payer MEDICAID, SELFPAY ==
[2025-03-17 22:06] VITALS: BP 161/72; PULSE 59; RESP 20; TEMP 36.7; O2SAT 98; BMI 33.7
--- NOTE | 2025-03-17 22:09 | ED.GENADULT ---
HPI - General Adult General Chief complaint: Allergic Reaction Stated complaint: allergic reaction to meds Time Seen by Provider: 03/17/25 22:14 Source: patient Limitations: no limitations History of Present Illness ED Provider: Ludivina Glasgow PA-C HPI narrative: 34-year-old male with a history of anxiety, chronic nasal congestion and postnasal drip, presents with dry mouth. Patient states he was prescribed clonidine 5 days ago to be used as needed for his anxiety. Patient states he has been using the medication, in his developed dry mouth. Patient states he feels that if it is difficult to swallow secondary to how dry his mouth is. Denies facial swelling, swelling of the tongue or lips, stridor, wheezing, sore throat or dysphagia. Related Data Previous Rx's ?Medication ?Instructions ?Recorded amoxicillin 875 mg-potassium 1 tab PO Q12H 10 days #20 tabs 11/06/21 clavulanate 125 mg tablet ibuprofen 400 mg tablet 400 mg PO Q6H PRN pain #20 tabs 08/22/22 penicillin V potassium 500 mg 500 mg PO TID 7 days #21 tabs 08/22/22 tablet amoxicillin 875 mg-potassium 1 tab PO BID #13 tabs 10/10/23 clavulanate 125 mg tablet cetirizine 10 mg tablet 10 mg PO DAILY PRN allergy 10/10/23 symptoms #30 tabs cyclobenzaprine 10 mg tablet 10 mg PO TID PRN muscle spasm #20 10/10/23 tabs amoxicillin 875 mg-potassium 1 tab PO BID #13 tabs 12/12/23 clavulanate 125 mg tablet cetirizine 10 mg tablet 10 mg PO DAILY #30 tabs 12/12/23 amoxicillin 875 mg tablet 875 mg PO BID 7 days #14 tabs 02/16/24 doxycycline hyclate 100 mg tablet 100 mg PO BID 7 days #14 tabs 02/16/24 Allergies Allergy/AdvReac Type Severity Reaction Status Date / Time acetaminophen (From TYLENOL) Allergy Unknown Hives Verified 03/17/25 22:08 Review of Systems Review of Systems: Yes all other systems are reviewed and are negative Constitutional: Constitutional: Denies fatigue and Denies fever(s) ENT: Reports dry mouth, Denies mouth pain, Reports nasal congestion, Denies odynophagia, Reports post nasal drip, Denies sore throat, Denies throat swelling and Denies tongue swelling Cardiovascular: Cardiovascular: Denies chest pain and Denies dyspnea Respiratory: Respiratory: Denies dyspnea, Denies stridor and Denies wheezing Gastrointestinal: Gastrointestinal: Denies abdominal pain and Denies odynophagia Endocrine: Endocrine: Denies fatigue Allergic/Immunologic: Allergic/Immunologic: Denies throat swelling, Denies tongue swelling and Denies wheezing PMF Past Medical History Attestation statement: The following information was validated with the patient. Medical History No pertinent past medical history Social History Social History Alcohol intake: unknown Patient Tobacco Use Status: Tobacco use Unknown Smoked in Last 30 Days: Yes Use of substances other than those prescribed or required for medical reasons: No Advance Directives: No Advance Directives Information Provided: Yes Do you have a plan to hurt others: No Plan Physical Exam ED Vital Signs: Vital Signs - 24 hr 03/17/25 22:06 03/17/25 22:15 Temperature 98.1 F 98.1 F Pulse Rate 59 59 Respiratory Rate 20 20 Blood Pressure 161/72 H 161/72 H Pulse Oximetry 98 98 Oxygen Delivery Method Room Air Room Air BMI result Body Mass Index 33.7 Const Other: Alert, appears anxious Orientation/consciousness: patient oriented x3 HENMT Other: Uvula midline, 0P is patent. No angioedema, no swelling of the tongue, no facial swelling Resp Other: No stridor, Effort & Inspection: normal respiratory effort Cardio Other: Normal peripheral perfusion Skin Other: Warm dry no rash Neuro General: patient oriented x3, gait normal, no focal motor deficits and CN's II-XI intact bilaterally Psych Other: Cooperative, anxious Course Course Course Narrative: RME: 34 yo male history of anxiety recently started taking clonidine 5 days ago. coming in for trouble swallowing. Feels his mouth is dry. No signs of anaphylaxis on exam. Patient has been medically screened Medical Decision Making Medical Decision Making MDM Narrative: 34-year-old male with a history of anxiety, chronic nasal congestion and postnasal drip, presents with dry mouth. Patient states he was prescribed clonidine 5 days ago to be used as needed for his anxiety. Patient states he has been using the medication, in his developed dry mouth. Patient states he feels that if it is difficult to swallow secondary to how dry his mouth is. Denies facial swelling, swelling of the tongue or lips, stridor, wheezing, sore throat or dysphagia. Problem: Anxiety, chronic nasal congestion with postnasal drip History: Per patient I have considered the following differential diagnoses: Seasonal allergies, adverse reaction from a medication, angioedema, anaphylaxis, allergic reaction Plan: I believe the patient is having dry mouth from the clonidine. In regard to the nasal congestion and postnasal drip, this is chronic, he is prescribed Flonase and he has been prescribed Zyrtec in the past. I have made further recommendations to help manage his chronic symptoms. I have recommended he discontinue the use of the clonidine, it is a p.r.n. med, that he should follow up with the his prescriber to discuss different options to manage his anxiety. There was nothing about the patient's exam to suggest angioedema/anaphylaxis, he has also had symptoms since yesterday. No indication for labs or imaging Differential Diagnosis Differential Diagnoses: The differential diagnosis associated with the presentation includes See medical decision-making Admission/Observation Consideration of admission/observation: Escalation of care including admission/observation considered Not applicable Discharge Plan Discharge Clinical Impression: Adverse reaction to drug Patient Disposition: Home, Self-Care Additional Instructions: You are experiencing dry mouth from the clonidine, this is a common side effect. I would discontinue its use. I would speak with the person who prescribes the clonidine, perhaps they can prescribe a different medication to help manage your anxiety. The effects with the clonidine last up to 10 hours, the side-effect we will gradually resolve. In the meantime, you can eat sour candies, this will induce saliva production. For your chronic nasal congestion and postnasal drip, take OTC Zyrtec daily indefinitely. Use [id number] nasal saline spray multiple times a day, this will help to keep your mucous membranes hydrated. It will also flush out your nasal passages. Follow up with your primary care provider as needed. Prescriptions: No Action amoxicillin-pot clavulanate 875-125 mg tablet 1 tab PO Q12H 10 Days Qty: 20 0RF penicillin V potassium 500 mg tablet 500 mg PO TID 7 Days Qty: 21 0RF ibuprofen 400 mg tablet 400 mg PO Q6H PRN (Reason: pain) Qty: 20 0RF cyclobenzaprine 10 mg tablet 10 mg PO TID PRN (Reason: muscle spasm) Qty: 20 0RF amoxicillin-pot clavulanate 875-125 mg tablet 1 tab PO BID Qty: 13 0RF cetirizine 10 mg tablet 10 mg PO DAILY PRN (Reason: allergy symptoms) Qty: 30 1RF amoxicillin-pot clavulanate 875-125 mg tablet 1 tab PO BID Qty: 13 0RF cetirizine 10 mg tablet 10 mg PO DAILY Qty: 30 0RF amoxicillin 875 mg tablet 875 mg PO BID 7 Days Qty: 14 0RF doxycycline hyclate 100 mg tablet 100 mg PO BID 7 Days Qty: 14 0RF Interventions: ED Discharge Assessment Last Done: 03/17/25 22:49 Print Language: Malay
[2025-03-17 22:15] VITALS: BP 161/72; PULSE 59; RESP 20; TEMP 36.7; O2SAT 98
--- NOTE | 2025-03-17 22:19 | PC.NURSE ---
pt reports feeling he cant clear his throat/ dry mouth. denies any other symptoms, denies anyone sick at home. clonodine new RX began 5 days ago, started feeling these symptoms yesterday. Reports was scared he was not going ti be able to breath and came to ED. SP02 8% r/a, all v/s WNL.
--- OUTSIDE RECORDS SUMMARY | 2025-03-17 22:28 | XMS_ITS | Clinical Summary ---
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 Periodontal disease 08/22/2022 Dental abscess 08/22/2022 Dental caries 08/22/2022 Social History Tobacco Use Types Packs/Day Years Used Date Smoking Tobacco: Former Cigarettes 0.3 0.5 Passive Smoke Exposure: Never Smokeless Tobacco: Former Tobacco Cessation:Counseling Given: No Alcohol Use Standard Drinks/Week Comments Never 0 (1 standard drink = 0.6 oz pur e alcohol) Sex and Gender Information Value Date Recorded Sex Assigned at Male 03/28/2022 10:14 AM EDT Legal Sex Male 10:14 AM EDT Gender Identity Male 03/28/2022 10:14 AM EDT Sexual Orientation Straight 03/28/2022 10 :14 AM EDT Last Filed Vital Signs Vital Sign Reading Time Taken Comments Blood Pressure 128/84 07/17/2019 12:02 AM EST Pulse 76 07/17/2019 12:02 AM EST Temperature - - Respiratory Rate - - Oxygen Saturation - - Inhaled Oxygen Concentration - - Weight 78.8 kg (173 lb 12.8 oz) 020 12:02 AM EST Height 164.5 cm (5' 4.76 ) 07/17/2019 1 2:02 AM EST Body Mass Index 29.13 07/17/2019 12:02 AM EST Plan of Treatment Health Maintenance Due Date Last Done Comments Dental Oral Exam 1988 Dental Prophylaxis 1988 Dental X-Ray: Bitewings 1988 Depression Screening 1988 HIV Screening 1988 Lipid Panel 1988 SDOH Screening 1988 Disability Screening 1988 Alcohol/Substance Use Screening 2000 Family Planning (PISQ) 11/12/2003 HPV Vaccines (1 - Male 3-dos e series) 11/12/2003 Hepatitis C Screening 2006 Hepatitis B Vaccines (1 of 3 - 19+ 3-dose series) 11/12/2007 Tobacco Screening 05/15/2024 05/15/2023 COVID-19 Vaccine (4 - 2024-2 6 season) 2025 03/13/2023, 03/15/2021, 01/31/2021 Influenza Vaccine (#1) 2025 03/13/2023 Dental X-Ray: Full Mouth 08/23/2025 08/22/2022 DTaP/Tdap/Td Vaccines (3 - T d or Tdap) 04/10/2027 04/10/2017, 09/07/2009 Zoster Vaccines (1 of 2) 2038 RSV Patients and Patients Aged 60 years or older (1 - 1-dose 75+ series) 11/12/2063 HIB Vaccines Aged Out No longer eligi ble based on patient's age to complete this topic Hepatitis A Vaccines Aged Out No long er eligible based on patient's age to complete this topic IPV Vaccines Aged Out No longer eligi ble based on patient's age to complete this topic Meningococcal B Vaccine Aged Out No l onger eligible based on patient's age to complete this topic Meningococcal Vaccine Aged Out No soledad walker eligible based on patient's age to complete this topic Pneumococcal Vaccine: Pediatrics (0 to 5 Years) and At-Risk Patients (6 to 49) Years Aged Out No longer eligible b ased on patient's age to complete this topic RSV under 20 months Aged Out No longe r eligible based on patient's age to complete this topic Rotavirus Vaccines Aged Out No longer eligible based on patient's age to complete this topic Procedures Procedure Name Priority Date/Time Associated Diagnosis Comments PANORAMIC RADIOGRAPHIC IMAGE Routine 08/22/2022 9:00 AM EDT from Last 3 Months or Most Recently Relevant to Health Maintenance Insurance [facility] [employer] STAND AD[place]
[2025-03-17 22:49] VITALS: BP 161/72; PULSE 59; RESP 20; TEMP 36.7; O2SAT 98
== END 2025-03-17 22:51 | disposition home or self-care (01) ==
PROVIDERS: Emergency Provider Emergency Medicine
DX: J34.89 Other specified disorders of nose and nasal sinuses (principal); T46.5X5A Adverse effect of other antihypertensive drugs, initial encounter; Y92.89 Other specified places as the place of occurrence of the external cause; F41.9 Anxiety disorder, unspecified; Z79.899 Other long term (current) drug therapy
CPT/HCPCS: 99282; 99284

== ENCOUNTER 2025-04-09 09:14 | Emergency (ER) | payer MEDICAID, SELFPAY ==
--- NOTE | ~2025-04-09 | CT_ITS ---
EXAMINATION: CT FACIAL BONES WITH CONTRAST CLINICAL INFORMATION: Left sided facial swelling. Concerning dental abscess. COMPARISON: None available. TECHNIQUE: Contiguous axial images through the maxillofacial bones using 3 mm collimation with bone and soft tissue algorithm, following the IV contrast administration 85 cc Omnipaque 350 strength without reported immediate complications. Sagittal and coronal reformatted images acquired. This CT examination was performed using dose optimization techniques as appropriate, variously including the following: *Automated exposure control *Adjustment of mA and/or kV according to patient size (this includes techniques or standardized protocols for targeted exams where dose is matched to indication/reason for exam; i.e. extremities or head) *Use of iterative reconstruction technique DLP: 534 mGy-cm FINDINGS: There is heterogeneous soft tissue enhancement without a peripheral enhancing fluid collection involving the upper lip extending into the left anterior lateral buccal margin of the mandible and near the nostrils. There is resection of the nasal septum and vomer the inferior left ethmoid air cells and the medial wall left maxillary sinus as well as the superior and middle and inferior turbinates, left side. The cribriform plate is intact. The orbital rims, medial/lamina papyracea of the orbits orbital fissures and orbital apices are intact. There is endosteal bone reaction and thickening of the left paranasal sinuses, sphenoid sinus with the mucosal thickening occupying the ethmoid air cells, left maxillary sinus and sphenoid sinus. There are multiple periapical hypodensity is in the alveolar region of the maxilla and to a lesser extent mandible with multiple/numerous dental cavities both maxilla and mandible. There is no fluid collections or masses in the intraconal or extraconal compartments of the orbits. The eyeballs are intact. No enhancing abnormality within the anterior cranial fossa or the middle cranial fossae included in the exam. There is secretions occupy in the right tympanic cavity, right mastoid antrum aditus at antrum and right mastoid air cells. There is no coalescence of the right mastoid air cells. Skull base, nasopharynx, retropharynx hypopharynx and larynx included in the exam demonstrated no fluid collections or masses. Bilateral likely reactive lymphadenopathy. Intraparenchymal lymph nodes, superficial left parotid gland. No sialolithiasis. No fluid collections or enhancing mass in the oral cavity or sublingual compartments. The vessels are patent. The included segments of thyroid gland is not enlarged. Air-fluid levels in the left mastoid tip. Left tympanic cavity is well pneumatized and aerated.. CT/CT facial bones w IV con IMPRESSION: Status post prior resection/surgical procedure nasal cavity, inferior left ethmoid and medial wall left maxillary sinus with the residual pattern paranasal sinus disease and likely phlegmon in the superior lead and left anterior lateral buccal margin of the mandible. No fluid collection. Reactive cervical lymphadenopathy. No orbits or intracranial extension. Correlated with the prior tumor resection versus granulomatous disease. Electronically signed by: Allen Esposito MD 04/09/2025 10:55 AM MAGAL[facility]
[2025-04-09 09:21] VITALS: BP 148/67; PULSE 69; RESP 18; TEMP 37; O2SAT 96; BMI 30.4
--- NOTE | 2025-04-09 09:44 | ED_ITS ---
HPI - Dental/Oral General Chief complaint: Dental/Oral Stated complaint: Dental Pain Time Seen by Provider: 04/09/25 09:27 Source: patient, RN notes reviewed and old records reviewed Mode of arrival: ambulatory History of Present Illness ED Provider: Whitney Fernandez PA-C HPI Narrative: 34-year-old male with no significant past medical history presenting to the ED complaining of left-sided dental pain and facial swelling since yesterday. Reports chronic dental issues, has not establish care with a dentist. Denies fever, chills, drainage from area, inability to swallow Related Data Previous Rx's ?Medication ?Instructions ?Recorded amoxicillin 875 mg-potassium 1 tab PO Q12H 10 days #20 tabs 11/06/21 clavulanate 125 mg tablet ibuprofen 400 mg tablet 400 mg PO Q6H PRN pain #20 t abs 08/22/22 penicillin V potassium 500 mg 500 mg PO TID 7 days #21 tabs 08/22/22 tablet amoxicillin 875 mg-potassium 1 tab PO BID #13 tabs clavulanate 125 mg tablet cetirizine 10 mg tablet 10 mg PO DAILY PRN allergy 0 10/10/23 symptoms #30 tabs cyclobenzaprine 10 mg tablet 10 mg PO TID PRN muscle s pasm #20 10/10/23 tabs amoxicillin 875 mg-potassium 1 tab PO BID #13 tabs clavulanate 125 mg tablet cetirizine 10 mg tablet 10 mg PO DAILY #30 tabs 11/26 11/19 amoxicillin 875 mg tablet 875 mg PO BID 7 days #14 tab s 02/16/24 doxycycline hyclate 100 mg tablet 100 mg PO BID 7 days #14 tabs 02/16/24 amoxicillin 875 mg-potassium 1 tab PO BID 10 days #20 tabs 04/09/25 clavulanate 125 mg tablet ibuprofen 800 mg tablet 800 mg PO Q8H PRN pain #14 t abs 04/09/25 Allergies Allergy/AdvReac Type Severity Reaction Status Date / Time acetaminophen (From TYLENOL) Allergy Unknown Hives Verified 04/09/25 09:23 Review of Systems 2 Review of Systems: Yes all other systems are reviewed and are negative Constitutional: Constitutional: Reports as per HPI [facility] Past Medical History Attestation statement: The following information was validated with the patient. Source: old records reviewed Medical History No pertinent past medical history Social History Social History Unable to assess alcohol history related to: Unknown Alcohol intake: unknown Patient Tobacco Use Status: Tobacco use Unknown Smoked in Last 30 Days: No Use of substances other than those prescribed or required for medical reasons: Unknown Advance Directives: No Advance Directives Information Provided: No Do you have a plan to hurt others: No Plan Physical Exam 2 Vital Signs: Vital Signs: Last Vital Signs Temp 98.2 F 04/09/25 13:38 Pulse 78 04/09/25 13:38 Resp 20 04/09/25 13:38 BP 142/70 H 04/09/25 13:38 Pulse Ox 96 04/09/25 13:38 O2 Del Method Room Air 04/09/25 13:38 BMI result Body Mass Index 30.4 Const: General: cooperative, healthy appearing and no acute distress O rientation/consciousness: patient oriented x3 Limitations: no limitations HEENT: Other: + left-sided facial swelling and tendern ess noted. Poor dentition, multiple caries. Left upper incisor with tender area. No focal fluctuance/induration. Head: Yes normal to inspection and Yes atraumatic Ears: hearing grossly normal bilaterally General nose exam: Normal external nose present Mouth: no drooling and no muffled voice Teeth and gingiva: poor dentition Throat: Yes posterior oropharynx normal, Yes uvula midline, No peritonsillar mass and No uvular edema Eyes: General: appearance normal, both eyes and all related structures EOM: EOMs intact bilaterally Neck: Neck: Yes normal visual inspection and Yes no meningeal signs Resp: Effort & Inspection: normal respiratory effort, no respiratory distress and no stridor Cardio: Rate: regular rate Skin: Rashes: no rashes Wounds: no wounds Neuro: General: patient oriented x3, tone normal and no meningeal signs C ranial nerves: Yes CN's II-XII intact bilaterally Gait exam (Neuro): Normal gait present Extrem: General: Yes normal to inspection Course Course Course Narrative: -1111--leukocytosis of 15.2. 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 No fluid collection. Reactive cervical lymphadenopathy. No orbits or intracranial extension. Correlated with the prior tumor resection versus granulomatous disease. > patient denies prior facial/nasal bone surgery. States he used to snort cocaine and heroin. Patient given dose of IV Unasyn in the ED >> will consult [facility]FS to ensure patient has close follow-up -have not yet received on callback. Will discharge patient home with p.o. antibiotics and OMFS follow-up. Discussed strict return precautions and worrisome signs and symptoms with patient including increasing swelling, fevers, difficulty or inability to swallow return to the ED immediately. He verbalized understanding -spoke with OMFS at [facility]. Patient has no/imaging faxed/sent over so they can secure appointment for patient Medications Administered Discontinued Medications Generic Name Dose Route Start Last Admin Trade Name [place] PRN Reason Stop Dose Admin Sodium Chloride 1,000 mls @ 999 mls/hr 04/09/25 09:45 04/09/25 11:15 Ns IV 04/09/25 10:45 Infused .Q1H1M WILNER Infusion Ampicillin Sodium/Sulbactam 100 mls @ 200 mls/hr 04/09/25 09:36 04/09/25 10:47 Sodium 3 gm/ Sodium Chloride IV 04/09/25 10:05 Infused ONCE ONE Infusion Iohexol 85 ml 04/09/25 10:26 04/09/25 10:28 Iohexol 350 Mg/Ml 100 Ml Infus..Btl IV 04/09/25 10:27 85 ml ONCE ONE Administration Ketorolac Tromethamine 15 mg 04/09/25 09:36 04/09/25 10:10 Ketorolac Tromethamine 15 Mg/Ml Vial IVPUSH 04/09/25 09:37 15 mg ONCE ONE Administration Ketorolac Tromethamine 15 mg 04/09/25 12:20 04/09/25 12:32 Ketorolac Tromethamine 15 Mg/Ml Vial IVPUSH 04/09/25 12:21 15 mg ONCE ONE Administration Medical Decision Making Medical Decision Making MDM Narrative: 34-year-old male with no significant past medical history presenting to the ED complaining of left-sided dental pain and facial swelling since yesterday. On exam vital signs stable, NAD, nontoxic appearing, physical exam as noted above. Concern for dental abscess vs cellulitis. No evidence of COLLECTIONS DIRECTOR/retropharyngeal abscess. No overt cellulitis. Low suspicion for severe sepsis Plan: Labs, facial CT, empiric antibiotics, pain control Please refer to course for remaining clinical decision making, interpretation of labs/imaging results, and discussions with consultants and/or family members. Differential Diagnosis Differential Diagnoses: The differential diagnosis associated with the presentation includes As above Admission/Observation Consideration of admission/observation: Escalation of care including admission/observation considered Consult Healthcare Provider Management of the patient was discussed with: Sewing Machine Operator Lab Data MDM Lab Attestation statement: I reviewed the patient's lab results. 04/09/25 09:50 04/09/25 09:50 Labs: Lab Results 04/09/25 04/09/25 Range/Units 09:50 11:40 WBC 15.2 H (4.8-10.8) X10*3/uL RBC 4.58 L (4.60-5.80) X10*6/uL Hgb 13.3 L (14.0-18.0) g/dl Hct 39.6 L (42.0-52.0) % MCV 86.5 (80.0-98.0) fL MCH 29.0 (27.0-33.0) pg MCHC 33.6 (31.0-36.0) g/dl RDW 12.6 (11.0-16.0) % Plt Count 228 (160-400) X10*3/uL MPV 10.0 (9.4-12.4) fL Immature Gran % (Auto) 0.5 H (0.0-0.4) % Neut % (Auto) 77.9 H (45-73) % Lymph % (Auto) 12.5 L (20-40) % [place] % (Auto) 7.9 (2-11) % Eos % (Auto) 0.8 (0-4) % Baso % (Auto) 0.4 (0-2) % Lymph # (Auto) 1.9 (1.2-4.9) X10*3/uL [place] # (Auto) 1.2 (0.1-1.2) X10*3/uL Eos # (Auto) 0.1 (0.0-0.4) X10*3/uL Baso # (Auto) 0.1 (0.0-0.2) X10*3/uL Abs Immat Gran (auto) 0.07 H (0.00-0.03) X10*3/uL Absolute Neuts (auto) 11.9 H (2.0-8.3) x10*3/uL Absolute Nucleated RBC 0.000 (0.0-0.012) X10*3/uL Nucleated RBC % (auto) 0.0 (0.0-0.2) /100WBC ESR 12 (0-15) MM/HR Sodium 140 (135-145) mmol/L Potassium 3.5 (3.3-5.1) mmol/L Chloride 106 (96-108) mmol/L Carbon Dioxide 25 (22-29) mmol/L Anion Gap 13 (12-20) BUN 10 (9-16) mg/dL Creatinine 0.66 (0.5-1.4) mg/dL Estim Creat Clear Calc 153.4 Estimated GFR > 60 Random Glucose 97 (60-115) mg/dL Lactic Acid 0.5 (0.5-2.0) mmol/L Calcium 9.0 D (8.4-10.2) mg/dL Total Bilirubin 1.1 H (0.0-1.0) mg/dL Direct Bilirubin 0.3 (0.0-0.5) mg/dL AST 29 (5-37) U/L ALT 27 (0-40) U/L Alkaline Phosphatase 121 H (39-117) U/L C-Reactive Protein 5.93 H (< or = 0.50) mg/dL Total Protein 7.2 (6.5-8.0) g/dL Albumin 4.3 (3.5-5.0) g/dL Independent Interpretation I performed an independent interpretation of an: CT Scan Radiology Impression Discussion of test interpretation with radiology: I have reviewed the radiologist's reading. External Record Review External record reviewed: Inpatient record, Office record, Outpatient record, Prior outpatient labs, Prior outpatient radiology, Primary care record and Outside ED record Tests considered The following testing was considered but not selected: As above Prescription Management I considered prescription management with: Pain Medication and Antibiotic Chronic Conditions Patient?s care impacted by: Other Social Determinants Patient?s care significantly limited by Social Determinants of Health including: Inadequate housing, Low income, Alcoholism and drug addiction in family, Problems related to primary support group and Other Social Determinant of Health Critical Care Time Critical Care Time Critical Care Time: Yes Total Critical Care Time: 40 Attestation: I have personally provided critical care time exclusive of time spent on separately billable procedures. Time includes review of lab data, radiology results, discussion with consultants, and monitoring for potential decompensation. Intervention performed as documented. Discharge Plan Discharge Clinical Impression: Facial cellulitis Patient Disposition: Home, Self-Care Instructions: Cellulitis (ED) Additional Instructions: You have cellulitis of your face to your left buccal margin AUGMENTIN AN ANTIBIOTIC PLEASE TAKE PRESCRIBED UNTIL COMPLETION YOU NEED TO FOLLOW-UP WITH MAXILLOFACIAL SPECIALIST. PLEASE CALL TO MAKE AN APPOINTMENT GINETTE Ibuprofen will help with pain and swelling If your pain/swelling persists/worsens, your face becomes red, you have difficulty or inability to swallow or spiking fevers return to the ED immediately Prescriptions: New ibuprofen 800 mg tablet 800 mg PO Q8H PRN (Reason: pain) Qty: 14 0RF amoxicillin-pot clavulanate 875-125 mg tablet 1 tab PO BID 10 Days Qty: 20 0RF No Action amoxicillin-pot clavulanate 875-125 mg tablet 1 tab PO Q12H 10 Days Qty: 20 0RF penicillin V potassium 500 mg tablet 500 mg PO TID 7 Days Qty: 21 0RF ibuprofen 400 mg tablet 400 mg PO Q6H PRN (Reason: pain) Qty: 20 0RF cyclobenzaprine 10 mg tablet 10 mg PO TID PRN (Reason: muscle spasm) Qty: 20 0RF amoxicillin-pot clavulanate 875-125 mg tablet 1 tab PO BID Qty: 13 0RF cetirizine 10 mg tablet 10 mg PO DAILY PRN (Reason: allergy symptoms) Qty: 30 1RF amoxicillin-pot clavulanate 875-125 mg tablet 1 tab PO BID Qty: 13 0RF cetirizine 10 mg tablet 10 mg PO DAILY Qty: 30 0RF amoxicillin 875 mg tablet 875 mg PO BID 7 Days Qty: 14 0RF doxycycline hyclate 100 mg tablet 100 mg PO BID 7 Days Qty: 14 0RF Referrals: Delbert Horan DMD [Dentist, Dentistry] KRISTIE ROSAS [Physician] Stand Alone Forms: Work/School Release Interventions: ED Discharge Assessment Last Done: 04/09/25 13:38 Discharge Date/Time: 04/09/25 13:38 Print Language: Czech
[2025-04-09 09:56] LABS: MANUAL DIFF FLAG NO
[2025-04-09 09:57] LABS: Hematocrit 39.6 % (42.0-52.0); Hemoglobin 13.3 g/dl (14.0-18.0); Imm Gran Abs Auto 0.07 X10*3/uL (0.00-0.03); Imm Gran Pct Auto 0.5 % (0.0-0.4); Lymphocytes Absolute Auto 1.9 X10*3/uL (1.2-4.9); Mean Corpuscular HGB Conc 33.6 g/dl (31.0-36.0); Mean Corpuscular Hemoglobin 29.0 pg (27.0-33.0); Mean Corpuscular Volume 86.5 fL (80.0-98.0); NRBC Abs Auto 0.000 X10*3/uL (0.0-0.012); NRBC Pct Auto 0.0 /100WBC (0.0-0.2); Platelet Count 228 X10*3/uL (160-400); Red Blood Count 4.58 X10*6/uL (4.60-5.80); White Blood Count 15.2 X10*3/uL (4.8-10.8)
[2025-04-09 10:20] LABS: Alanine Aminotransferase 27 U/L (0-40); Albumin Level 4.3 g/dL (3.5-5.0); Alkaline Phosphatase 121 U/L (39-117); Anion Gap 13 (12-20); Aspartate Amino Transferase 29 U/L (5-37); Blood Urea Nitrogen 10 mg/dL (9-16); Calcium 9.0 mg/dL (8.4-10.2); Carbon Dioxide 25 mmol/L (22-29); Chloride 106 mmol/L (96-108); Creatinine Clr Calc Pharmacy 153.4; Estimated Glomerular Filt Rate > 60; Potassium 3.5 mmol/L (3.3-5.1); Sodium 140 mmol/L (135-145); Total Protein 7.2 g/dL (6.5-8.0)
[2025-04-09] MEDS: iohexoL 350 MG/ML 100 ML INFUS..BTL 85 ML IV (10:28)
[2025-04-09 10:49] LABS: Erythrocyte Sedimentation Rate 12 MM/HR (0-15)
--- OUTSIDE RECORDS SUMMARY | 2025-04-09 11:15 | XMS_ITS | Clinical Summary ---
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
--- OUTSIDE RECORDS SUMMARY | 2025-04-09 11:15 | XMS_ITS | Encounter Summary ---
Author Organization [employer] Address [address] [place] [address] Care Team Providers Care Remelt Furnace Expediter Name Role Phone Unavailable Primary Care Provider Unavailabl e Reason for Visit * Reason Comments [facility] Recovery Supports Encounter Details Date Type Department Care Team (Late st Contact Info) Description 04/07/2025 Patient Outreach [facility] MEDICINE [address] [place] [address] Rickie Del Real Recovery Supports Social History Tobacco Use Types Packs/Day Years Used Date Smoking Tobacco: Former Cigarettes 0.3 0.5 Passive Smoke Exposure: Never Smokeless Tobacco: Former Alcohol Use Standard Drinks/Week Comments Never 0 (1 standard drink = 0.6 oz pur e alcohol) Sex and Gender Information Value Date Recorded Sex Assigned at Male 03/28/2022 10:14 AM EDT Legal Sex Male 10:14 AM EDT Gender Identity Male 03/28/2022 10:14 AM EDT Sexual Orientation Straight 03/28/2022 10 :14 AM EDT documented as of this encounter Progress Notes * Rickie Del Real - 04/07/2025 9:43 AM EST I met with Dale today. Setting: in person at [facility] Recovery Wellness Goals worked on: Physical Health/Mental Health and Social Stability Action taken/next steps: Offered person centered recovery support, Attended alcohol and drug free activity, and Referred to sober living Additional comments: Staff Pharmacist assisted the participant in completing an application for a sober living program to support and continue their journey in recovery. Rickie Del Real documented in this encounter Plan of Treatment Not on file documented as of this encounter Visit Diagnoses Not on filedocumented in this encounter
[2025-04-09 12:00] VITALS: BP 142/70; PULSE 78; RESP 20; O2SAT 96
[2025-04-09 13:38] VITALS: BP 142/70; PULSE 78; RESP 20; TEMP 36.8; O2SAT 96
== END 2025-04-09 13:38 | disposition home or self-care (01) ==
PROVIDERS: Physician Assistant; Emergency Provider Emergency Medicine
DX: L03.211 Cellulitis of face (principal); K08.9 Disorder of teeth and supporting structures, unspecified; R22.9 Localized swelling, mass and lump, unspecified
CPT/HCPCS: 36415; 70487; 80048; 80076; 83605; 85025; 85652; 86140; 87040; 96365; 96375; 96376; 99284; 99285; J0295; J1885; Q9967

== ENCOUNTER → 2025-04-09 09:36 | Outpatient (BNV) | payer MEDICAID, SELFPAY | PROVIDERS: Emergency Provider Emergency Medicine; Visit Provider Radiology Diagnostic Radiology | DX: R22.0 Localized swelling, mass and lump, head (principal) | CPT/HCPCS: 70487 ==